=== PATIENT | female | born 1970 | race African-American/Black ===

== ENCOUNTER 2023-04-27 13:21 | Emergency (ER) | payer MEDICAID ==
[~2023-04-27] VITALS: Ht 165.1 cm; Wt 71.0 kg
[~2023-04-27 13:21] MED LIST: QUET50TA PO
[2023-04-27 13:48] VITALS: TEMP 98.5; O2SAT 100
[2023-04-27] MEDS ORDERED: SULF1TAB48 MT (14:12)
[2023-04-27] MEDS ORDERED: AMOX1TAB16 MT (14:12)
[2023-04-27] MEDS ORDERED: IBUP-2029 PO (14:12)
[2023-04-27] MEDS ORDERED: CEFTRIAXONE SODIUM 1 G/VIAL IM NR (14:15)
[2023-04-27] MEDS ORDERED: LIDOCAINE HCL 1% 20ML VIAL (Pyxis) INJ INFIL NR (14:15)
[2023-04-27] MEDS ORDERED: IBUPROFEN 600MG TABLET PO STA (15:02)
[2023-04-27] MEDS ORDERED: IBUPROFEN 600MG TABLET PO NR (17:30)
[2023-04-27 17:40] VITALS: BP 146/111; PULSE 95; RESP 18
== END 2023-04-27 17:42 | disposition home or self-care (01) ==
LOC: ER 13:21
DX: K04.7 Periapical abscess without sinus (principal)
CPT/HCPCS: 99283; 96372; J0696; J3490

== ENCOUNTER 2025-04-26 12:45 | Emergency (ER) | payer MEDICAID ==
[~2025-04-26] VITALS: Ht 167.6 cm; Wt 70.0 kg
[~2025-04-26 12:45] MED LIST changes: +ATOR20TA PO; +BRIM.2 RIGHTEYE; +DIVA125C2 PO; +DORZ10DR9 EACHEYE; +LOSA1TAB37 PO; +LURA120T PO; +NICO2GUM38 PO; +PROT40 MT; +XALAO RIGHTEYE
[2025-04-26 13:01] VITALS: O2SAT 100
[2025-04-26 15:24] LABS: BASOPHILS % 0.5 % (0.0-2.0); EOSINOPHILS % 2.0 % (0.0-5.0); HEMATOCRIT. 34.8 % (36.0-48.0); HEMOGLOBIN. 11.7 g/dL (12.0-16.0); LYMPHOCYTES % 23.0 % (20.0-50.0); MEAN PLATELET VOLUME 7.3 fl (7.4-10.4); MONOCYTES % 8.6 % (2.0-8.0); NEUTROPHILS % 65.9 % (40.0-76.0); PLATELET 539 x1000/uL (130-400); RED BLOOD CELL COUNT 3.28 mill/uL (4.2-5.4); RED CELL DISTRIBUTION WIDTH 15.3 % (11.6-14.6)
[2025-04-26 15:29] LABS: *AMPHETAMINES SCREEN URINE NEGATIVE (NEGATIVE); *BARBITURATES SCREEN URINE NEGATIVE (NEGATIVE); *BENZODIAZEPINES SCREEN URINE NEGATIVE (NEGATIVE); *COCAINE SCREEN URINE NEGATIVE (NEGATIVE); CANNABINOID URINE SCREEN PRESUMPTIVE POSITIVE (NEGATIVE); ECSTASY MDMA SCREEN URINE NEGATIVE (NEGATIVE); METHADONE URINE SCREEN NEGATIVE (NEGATIVE); OPIATES URINE SCREEN NEGATIVE (NEGATIVE); PHENCYCLIDINE URINE SCREEN NEGATIVE (NEGATIVE)
[2025-04-26 15:43] LABS: CREATININE 1.1 mg/dL (0.6-1.0); ETHANOL BLOOD < 10 mg/dL (<10); UREA NITROGEN BLOOD 23 mg/dL (9-23)
[2025-04-26] MEDS: SODIUM CHLORIDE 0.9% 1,000 ML IV ONE (17:59)
[2025-04-26] MEDS: POTASSIUM CHLORIDE 20MEQ TABLET SR PO ONE (18:00)
[2025-04-26] MEDS: METOPROLOL SUCCINATE 50MG ER TABLET PO NR (21:03)
[2025-04-26 23:27] LABS: GLUCOSE URINE NEGATIVE (NEGATIVE); KETONES URINE NEGATIVE (NEGATIVE); LEUKOCYTE ESTERASE URINE TRACE (NEGATIVE); NITRITE URINE NEGATIVE (NEGATIVE); OCCULT BLOOD URINE NEGATIVE (NEGATIVE); PH URINE 8.5 (4.5-8.0); PROTEIN URINE TRACE (NEGATIVE); SPECIFIC GRAVITY URINE 1.015 (1.005-1.030); UROBILINOGEN URINE 2.0 E.U./dL (0.2-1.0)
[2025-04-26 23:43] LABS: COLOR URINE STRAW (YELLOW)
[2025-04-26 23:44] LABS: CLARITY URINE SL HAZY (CLEAR)
[2025-04-26 23:48] LABS: RBC URINE NONE SEEN /hpf (0-2)
[2025-04-26 23:49] LABS: BACTERIA URINE TRACE; SQUAMOUS EPITHELIAL CELL URINE RARE /lpf (RARE/1+)
[2025-04-26 23:50] LABS: MUCUS URINE TRACE /lpf (< = 2+)
[2025-04-27] MEDS: METOPROLOL TARTRATE 50MG TABLET PO ONE (19:00)
[2025-04-27] MEDS: QUETIAPINE FUMARATE 50MG TABLET PO SCH (20:47)
[2025-04-28] MEDS: CEPHALEXIN 250MG CAPSULE PO SCH (22:00)
[2025-04-29 22:26] LABS: HCG SCREEN NEGATIVE
[2025-04-29] MEDS: POTASSIUM CHLORIDE 20MEQ/PACKET PO ONE (22:42)
[2025-04-29] MEDS: DIVALPROEX SODIUM 125MG SPRINKLE CAPSULE PO SCH (23:06)
[2025-04-29] MEDS: LOSARTAN 100 MG TABLET PO SCH ×2 (23:08→23:36)
[2025-04-29] MEDS: AMOXICILLIN/POTASSIUM CLAVULANATE 875/125MG TAB PO SCH (23:35)
[2025-04-29] MEDS: HYDROCHLOROTHIAZIDE 25MG TABLET PO SCH (23:37)
[2025-04-29] MEDS: DIVALPROEX SODIUM 500MG DR TABLET PO SCH (23:38)
[2025-04-29] MEDS: LATANOPROST 0.005% OPHTH DROPS 2.5ML RIGHTEYE SCH (23:40)
[2025-04-29] MEDS: BRIMONIDINE 0.2% OPHTH DROPS 5ML RIGHTEYE SCH (23:48)
[2025-04-29] MEDS: DORZOLAM/TIMOLOL 2%/0.5% OPHTH DROPS 10ML EACHEYE SCH (23:59)
[2025-04-30] MEDS: HALOPERIDOL LACTATE 5MG/ML VIAL IM ONE (00:09)
[2025-04-30] MEDS: LORAZEPAM 2MG/ML UD SYRINGE IM NR (00:10)
[2025-04-30 08:44] VITALS: BP 139/87; PULSE 82; RESP 16; TEMP 36.7; O2SAT 99
[2025-04-30] MEDS ORDERED: QUET50TA MT (12:37)
== END 2025-04-30 10:10 | disposition home or self-care (01) ==
LOC: ER 12:45
DX: R44.0 Auditory hallucinations (principal); R44.1 Visual hallucinations; F17.200 Nicotine dependence, unspecified, uncomplicated; Z79.899 Other long term (current) drug therapy; Z20.822 Contact with and (suspected) exposure to COVID-19
CPT/HCPCS: 80305; 80048; 81003; 80307; 80329; 80320; 84703; 85025; 36415; 93005; 96360; 96361; 99285; 87426; J7030; Z7610 ×3; J1630; J2060; G0480

== ENCOUNTER 2025-05-14 08:56 | Emergency (ER) | payer MEDICAID ==
[~2025-05-14] VITALS: Ht 167.6 cm; Wt 71.0 kg
[~2025-05-14 08:56] MED LIST changes: +QUET50TA MT
[2025-05-14 09:01] VITALS: O2SAT 100
[2025-05-14] MEDS ORDERED: AMOX1TAB16 MT (10:54)
[2025-05-14] MEDS ORDERED: SULF1TAB48 MT (10:54)
[2025-05-14] MEDS ORDERED: IBUP-2437 MT (10:54)
[2025-05-14 11:02] VITALS: TEMP 36.9; O2SAT 100
[2025-05-14 11:04] VITALS: BP 167/98; PULSE 74; RESP 18
[2025-05-14] MEDS: KETOROLAC 30MG/ML VIAL IM ONE (11:04)
[2025-05-14] MEDS: CEFTRIAXONE SODIUM 1G VIAL IM ONE (11:04)
== END 2025-05-14 11:10 | disposition home or self-care (01) ==
LOC: ER 08:56
DX: K04.7 Periapical abscess without sinus (principal); Z79.899 Other long term (current) drug therapy
CPT/HCPCS: 96372; 99284; J0696; J1885; Z7610 ×2